=== PATIENT | male | born 1950 | race Caucasian/White ===

== ENCOUNTER 2016-10-26 12:27 | Outpatient (CLI) | payer OTHER | END 2016-10-26 12:28 | disposition critical access hospital (66) | LOC: EMS 12:27 | PROVIDERS: ATTEND Surgery | DX: R07.9 Chest pain, unspecified (principal); R53.83 Other fatigue | CPT/HCPCS: A0425; A0427 ==

== ENCOUNTER 2016-10-26 12:56 | Emergency (ER) | payer OTHER ==
[2016-10-26 13:21] LABS: BASOPHILS % (AUTO) 0.6 %; EOSINOPHILS # (AUTO) 0.1 10^3/uL (0.0-0.7); HCT - HEMATOCRIT 39.6 % (42.0-52.0); HGB - HEMOGLOBIN 13.5 g/dL (14.0-18.0); LYMPHOCYTES # (AUTO) 0.8 10^3/uL (1.5-3.5); LYMPHOCYTES % (AUTO) 12.8 %; MEAN CORPUSCULAR HEMOGLOBIN 31.6 pg (27.0-31.0); MEAN CORPUSCULAR HGB CONC 34.1 g/dL (32.0-36.0); MEAN CORPUSCULAR VOLUME 92.8 fL (80.0-94.0); MEAN PLATELET VOLUME 7.3 fL (7.4-11.4); MONOCYTES # (AUTO) 0.4 10^3/uL (0.0-1.0); MONOCYTES % (AUTO) 6.4 %; NEUTROPHILS # (AUTO) 4.7 10^3/uL (1.5-6.6); NEUTROPHILS % (AUTO) 79.2 %; RED BLOOD COUNT 4.26 10^6/uL (4.70-6.10); RED CELL DISTRIBUTION WIDTH 13.3 % (12.0-15.0); UNCORRECTED WHITE BLOOD COUNT 5.9 x10^3/uL; WHITE BLOOD COUNT 5.9 x10^3/uL (4.8-10.8)
[2016-10-26 13:28] LABS: BILIRUBIN,URINE NEGATIVE (NEGATIVE); PH,URINE 5.5 PH (5.0-7.5)
[2016-10-26 13:28] LABS: INR 1.1 (0.8-1.2); PT - PROTHROMBIN TIME 12.5 secs (9.9-12.6)
[2016-10-26 13:29] LABS: UA CHARGE (STRIP ONLY) YES; UR CULTURE IF IND NOT INDICATED
--- NOTE | 2016-10-26 13:31 | XRAY Preliminary Report ---
Exam: XR Chest 1 View IMPRESSION: Postoperative changes. No evidence of acute cardiopulmonary disease. [facility] SITE ID: [id number]
[2016-10-26] MEDS ORDERED: NITROGLYCERIN 2% PASTE TOP ONE (13:34)
[2016-10-26] MEDS ORDERED: ASPIRIN CHEW 81 MG TABLET ONE (13:34)
[2016-10-26] MEDS ORDERED: ENOXAPARIN 80 MG/0.8 ML SYRINGE SUBQ ONE (13:34)
--- NOTE | 2016-10-26 13:34 | XRAY Report ---
EXAM: CHEST RADIOGRAPHY EXAM DATE: 10/26/2016 01:24 PM. CLINICAL HISTORY: Chest pain. COMPARISON: None. TECHNIQUE: 1 view. FINDINGS: Lungs/Pleura: No focal opacities evident. No pleural effusion. No pneumothorax. Mediastinum: Postoperative changes of previous cardiac surgery. No cardiomegaly. Other: None. IMPRESSION: Postoperative changes. No evidence of acute cardiopulmonary disease. [facility] Referring Provider Line: [phone] SITE ID: [id number]
[2016-10-26 13:35] LABS: PARTIAL THROMBOPLASTIN TIME 26.6 secs (24.9-33.3)
[2016-10-26 13:37] LABS: ALBUMIN/GLOBULIN RATIO 1.2 (1.0-2.2); BILIRUBIN,TOTAL 0.9 mg/dL (0.2-1.0); BUN - BLOOD UREA NITROGEN 30 mg/dL (6-20); CARBON DIOXIDE - CO2 30 mmol/L (21-32); CHLORIDE 103 mmol/L (101-111); CREATININE 1.1 mg/dL (0.6-1.2); GFR - MDRD 67 (>89); GLUCOSE 174 mg/dL (70-100); LIPASE 35 U/L (22-51); POTASSIUM 3.6 mmol/L (3.5-5.0); SODIUM 138 mmol/L (135-145); TOTAL PROTEIN 6.8 g/dL (6.7-8.2)
[2016-10-26] MEDS: NITROGLYCERIN 2% PASTE TOP STA (13:42)
[2016-10-26] MEDS: ASPIRIN CHEW 81 MG TABLET PO STA (13:43)
[2016-10-26] MEDS: ENOXAPARIN 80 MG/0.8 ML SYRINGE SUBQ STA (13:43)
[2016-10-26] MEDS: SODIUM CHLORIDE 0.9% 1,000 ML IV ONE (14:14)
--- NOTE | 2016-10-26 15:50 | ED Physician Documentation ---
History of Present Illness - Stated complaint Stated Complaint: CP - Chief complaint Chief Complaint: Cardiac - History obtained from History obtained from: Patient - Additonal information Additional information: Patient is a 66-year-old male with a history of coronary disease status post two -vessel bypass in 2011. He also has a history of dyslipidemia. He is here with a complaint of exertional chest pain. The symptoms first started about 3 weeks ago and it occurred each time he walks on his treadmill. More recently when the patient went on a walk yesterday he had to stop several times even during a short walk because of a dull ache in the anterior precordium. He has not had this pain at rest yet. Today when he is walking out to his car he felt a dull ache in the anterior precordium as well.He denies any other associated symptoms and her is no radiation of this pain anywhere. He has not had any other symptoms consistent with infection such as fever or chills or cough. He has not had any nausea vomiting, constipation diarrhea or lower urinary symptoms. He is on aspirin and on a statin. He is not on any other anticoagulation. He says he saw physician in [place] within the month and had a cardiac echo done. He thinks the results of the study were normal he does not believe he has had any provocative stress testing since the heart catheterization and bypass. This patient does not smoke or drink he is otherwise healthy And his other significant medical problem is Parkinson's which is currently being treated. Review of systems: For pertinent positive and negative questions for the review of systems please see history of present illness. Otherwise all other systems have been reviewed and are negative. Dragon disclaimer: Parts of this medical record were created using voice recognition technology. Because of the inherent limitations of this system occasional same sounding word substitutions do occur and persist despite proofreading. Please read the document for context. PD PAST MEDICAL HISTORY - Past Medical History Past Medical History: No Cardiovascular: High cholesterol, [place] Neuro: Parkinson's Endocrine/Autoimmune: None GI: None - Past Surgical History Cardiovascular: CABG - Present Medications Home Medications: Ambulatory Orders Medication Instructions Recorded Confirmed Aspirin 81 mg 12/17/14 12/17/14 Atorvastatin Calcium 80 mg PO DAILY 12/17/14 10/26/16 Carbidopa/Levodopa [Carbidopa-Levo 1 each PO DAILY 12/17/14 10/26/16 10-100 mg Odt] Terazosin [Hytrin] 5 mg PO DAILY 12/17/14 10/26/16 Losartan [Cozaar] 12.5 mg PO DAILY 10/26/16 10/26/16 Rasagiline [Azilect] 1 tab PO DAILY 10/26/16 10/26/16 - Allergies Allergies/Adverse Reactions: Allergies Allergy/AdvReac Type Severity Reaction Status Date / Time lisinopril Allergy Unknown Verified 12/17/14 14:19 - Social History Does the pt smoke?: No Smoking Status: Never smoker Does the pt drink ETOH?: No Does the pt have substance abuse?: No PD ED PE NORMAL - General General: Alert and oriented X 3, No acute distress, Well developed/nourished - HEENT HEENT: Atraumatic, PERRL, EOMI, Ears normal, Pharynx benign, Dentition benign - Neck Neck: Supple, no meningeal sign, No bony TTP, No JVD, No bruit - Cardiac Cardiac: RRR, No murmur, No gallop, No rub - Respiratory Respiratory: No respiratory distress, Clear bilaterally - Abdomen Abdomen: Normal bowel sounds, Soft, Non tender, Non distended - Derm Derm: Normal color, Warm and dry, No rash - Extremities Extremities: No deformity, No tenderness to palpate, Normal ROM s pain, No edema - Neuro Neuro: Alert and oriented X 3, special library librarian 2-12 intact, No motor deficit, No sensory deficit - Psych Psych: Normal mood, Normal affect Results - Vitals Vitals: Vital Signs - 24 hr 10/26/16 10/26/16 10/26/16 13:02 13:51 14:24 Temperature 36.6 C Heart Rate 75 85 68 Respiratory 16 16 16 Rate Blood Pressure 127/60 128/56 L O2 Saturation 97 99 98 10/26/16 15:06 Temperature Heart Rate 71 Respiratory 16 Rate Blood Pressure 136/66 H O2 Saturation 98 Oxygen O2 Source Room air - Labs Labs: Laboratory Tests 10/26/16 10/26/16 10/26/16 13:00 13:14 13:14 WBC 5.9 RBC 4.26 L Hgb 13.5 L Hct 39.6 L MCV 92.8 MCH 31.6 H MCHC 34.1 RDW 13.3 Plt Count 169 MPV 7.3 L Neut # 4.7 Lymph # 0.8 L [place] # 0.4 Eos # 0.1 Baso # 0.0 Absolute Nucleated RBC 0.00 Nucleated RBCs 0.0 PT 12.5 INR 1.1 APTT 26.6 Sodium Potassium Chloride Carbon Dioxide Anion Gap BUN Creatinine Estimated GFR (MDRD) Glucose Calcium Total Bilirubin AST ALT Alkaline Phosphatase Troponin I B-Natriuretic Peptide Total Protein Albumin Globulin Albumin/Globulin Ratio Lipase Urine Color YELLOW Urine Clarity CLEAR Urine pH 5.5 Ur Specific [place] 1.025 Urine Protein NEGATIVE Urine Glucose (UA) NEGATIVE Urine Ketones TRACE Urine Occult Blood NEGATIVE Urine Nitrite NEGATIVE Urine Bilirubin NEGATIVE Urine Urobilinogen 0.2 (NORMAL) Ur Leukocyte Esterase NEGATIVE Ur Microscopic Review NOT INDICATED Urine Culture Comments NOT INDICATED 10/26/16 10/26/16 10/26/16 13:14 13:14 13:14 WBC RBC Hgb Hct MCV MCH MCHC RDW Plt Count MPV Neut # Lymph # [place] # Eos # Baso # Absolute Nucleated RBC Nucleated RBCs PT INR APTT Sodium 138 Potassium 3.6 Chloride 103 Carbon Dioxide 30 Anion Gap 5.0 L BUN 30 H Creatinine 1.1 Estimated GFR (MDRD) 67 L Glucose 174 H Calcium 9.0 Total Bilirubin 0.9 AST 30 ALT < 10 L Alkaline Phosphatase 70 Troponin I < 0.04 B-Natriuretic Peptide 37 Total Protein 6.8 Albumin 3.7 Globulin 3.1 Albumin/Globulin Ratio 1.2 Lipase 35 Urine Color Urine Clarity Urine pH Ur Specific [place] Urine Protein Urine Glucose (UA) Urine Ketones Urine Occult Blood Urine Nitrite Urine Bilirubin Urine Urobilinogen Ur Leukocyte Esterase Ur Microscopic Review Urine Culture Comments PD MEDICAL DECISION MAKING - ED course ED course: Patient is a pleasant 66-year-old male with a history of coronary disease status post bypass who presents with exertional chest pain for the past 3 weeks that is getting worse. Today was a worse episode so far it was exacerbated by minimal exertion that occurred when the patient walked from his home to the car with boxes. The chest pain is substernal without radiation any other associated symptoms. The patient does not have any other symptomology that may explain his exertional dyspneaOther than a cardiac cause. He has not been sick or ill he has not had any fever or chills or coughing and on examination here in general he looks to be in good condition for his age. He was given an aspirin and EKG was done his EKG demonstrates normal sinus rhythm. The HI, QRS and QT intervals are all within normal limits there is no evidence of ST elevation or depression but there is very subtle T-wave inversion in V4 V5 and V6.A chest x-ray was done and shows no evidence of any acute intrathoracic disease. Blood work on this patient is unremarkable and does not show any findings that might be causal to his exertional chest pain. His hemoglobin and hematocrit are normal. His BUN is slightly elevated at 30 however his renal function is normal. He is first troponin is negative. He was given 1 L of normal saline here, nitroglycerin topically, and injection of Lovenox. Given this patient's worsening exertional chest pain and history of coronary disease he probably needs provocative stress testing and perhaps angiography. The patient is currently stable and has no chest pain at rest. The [facility] had no beds were unable to get the patient to that facility. Evelia Mcallister responded to her call and are agreeable to take this patient As a transfer for further evaluation and probable admission. The patient remains clinically stable at this time. Disposition: Transfer to [facility] Clinical impression: 1. Probable unstable angina with exertional chest pain that is worsening 2. History of coronary disease status post two-vessel bypass in 2011 3. History of Parkinson's disease-stable Departure - Departure Disposition: 02 Transfer Acute Care Hosp Clinical Impression: Unstable angina Condition: Good
[2016-10-26 16:47] VITALS: BP 131/62
== END 2016-10-26 16:52 | disposition short-term general hospital (02) ==
LOC: EDUNIT# → ED 12:56
DX: I25.110 Atherosclerotic heart disease of native coronary artery with unstable angina pectoris (principal); Z95.1 Presence of aortocoronary bypass graft; E78.5 Hyperlipidemia, unspecified; E78.00 Pure hypercholesterolemia, unspecified; I25.2 Old myocardial infarction; G20 Parkinson's disease; Z79.82 Long term (current) use of aspirin
CPT/HCPCS: 36415; 71010; 80053; 81001; 81003; 83690; 83880; 84484; 85025; 85610; 85730; 87086; 93005; 96372; 99285

== ENCOUNTER 2016-10-26 16:50 | Outpatient (CLI) | payer OTHER | END 2016-10-26 16:51 | disposition short-term general hospital (02) | LOC: EMS 16:50 | PROVIDERS: ATTEND Surgery | DX: R07.9 Chest pain, unspecified (principal) | CPT/HCPCS: A0170; A0425; A0426 ==

== ENCOUNTER 2017-05-13 19:09 | Outpatient (CLI) | payer OTHER | END 2017-05-13 19:10 | disposition home or self-care (01) | LOC: LAB 19:09 | PROVIDERS: ATTEND Pathology Blood Banking & Transfusion Medicine | DX: Z01.89 Encounter for other specified special examinations (principal) | CPT/HCPCS: 36415 ==

== ENCOUNTER 2018-09-11 08:00 | Outpatient (CLI) | payer OTHER ==
[2018-09-11 19:12] LABS: ALT ALANINE AMINOTRANSFERASE < 10 IU/L (10-60); AST ASPARTATE AMINOTRANSFERASE 26 IU/L (10-42); CHOL/HDL RATIO 2.6 (<5.0); CHOLESTEROL 111 mg/dL; CK- CREATINE KINASE 281 IU/L (22-269); HDL CHOLESTEROL 42 mg/dL; LDL CHOLESTEROL,CALCULATED 58 mg/dL; LDL CHOLESTEROL,DIRECT 60 mg/dL; LDL/HDL RATIO 1.4 (<3.6); VLDL CHOLESTEROL 11 mg/dL
== END 2018-09-11 23:59 | disposition home or self-care (01) ==
LOC: LAB.N 08:00
PROVIDERS: ATTEND Internal Medicine Cardiovascular Disease
DX: E78.5 Hyperlipidemia, unspecified (principal)
CPT/HCPCS: 36415; 80061; 82550; 83721; 84450; 84460

== ENCOUNTER 2018-11-06 12:12 | Emergency (ER) | payer OTHER ==
[2018-11-06] MEDS ORDERED: MAG HYDROX/AL HYDROX/SIMETH 30 ML UDC PO STA (12:31)
[2018-11-06] MEDS ORDERED: LIDOCAINE VISCOUS 2% 15 ML UDC MM STA (12:31)
--- NOTE | 2018-11-06 12:34 | ED Physician Documentation ---
PD HPI CHEST PAIN - Stated complaint Stated Complaint: CHEST PAIN - Chief complaint Chief Complaint: Cardiac - History obtained from History obtained from: Patient - History of Present Illness Timing - onset: How many hours ago (1.5) Timing - onset during: Other (After taking morning medication.) Timing - details: Now resolved Location: Substernal Improved by: ASA Similar symptoms before: No diagnosis - Additional information Additional information: The patient is 68-year-old male who presents with episode of chest pressure that occurred after taking his morning medications and eating a triple chocolate fudge brownie. He felt associated weakness, but denies shortness of breath, nausea or vomiting. The medications were Sinemet, baby aspirin, and ibuprofen. 911 was called, and the medics administered 3 more baby aspirin. His symptoms have completely resolved since that time. He reports history of similar but less severe episodes in the past after taking medications. Past history is significant for Parkinson's and for coronary artery disease for which he is status post CABG. 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 Review of Systems Constitutional: denies: Fever, Fatigue Ears: denies: Tinnitus/ringing Nose: denies: Congestion Throat: denies: Sore throat Cardiac: reports: Chest pain / pressure (resolved) Respiratory: denies: Dyspnea, Cough GI: denies: Abdominal Pain, Nausea, Vomiting : denies: Dysuria Skin: denies: Rash Musculoskeletal: denies: Extremity pain Neurologic: denies: Focal weakness, Numbness, Headache PD PAST MEDICAL HISTORY - Past Medical History Cardiovascular: High cholesterol, Coronary artery disease, [place] Respiratory: None Neuro: Parkinson's Endocrine/Autoimmune: None GI: None : Benign prostate hypertrophy HEENT: None Psych: None Musculoskeletal: None Derm: None - Past Surgical History Ortho: Other Cardiovascular: CABG, Coronary stent - Present Medications Home Medications: Ambulatory Orders Medication Instructions Recorded Confirmed Aspirin 81 mg 12/17/14 12/17/14 Atorvastatin Calcium 80 mg PO DAILY 12/17/14 10/26/16 Carbidopa/Levodopa [Carbidopa-Levo 1 each PO DAILY 12/17/14 10/26/16 10-100 mg Odt] Terazosin [Hytrin] 5 mg PO DAILY 12/17/14 10/26/16 Losartan [Cozaar] 12.5 mg PO DAILY 10/26/16 10/26/16 Rasagiline [Azilect] 1 tab PO DAILY 10/26/16 10/26/16 - Allergies Allergies/Adverse Reactions: Allergies Allergy/AdvReac Type Severity Reaction Status Date / Time lisinopril Allergy Unknown Verified 12/17/14 14:19 - Social History Does the pt smoke?: No Smoking Status: Never smoker Does the pt drink ETOH?: No ETOH Use: Liquor Does the pt have substance abuse?: No - Immunizations Immunizations are current?: No Immunizations: Other immun not current - POLST Patient has POLST: No PD ED PE NORMAL - Vitals Vital signs reviewed: Yes (hypotensive) - General General: Alert and oriented X 3, Well developed/nourished, Other (Masked facies consistent with parkinsonism.) - HEENT HEENT: Atraumatic, Pharynx benign - Neck Neck: No adenopathy, No JVD - Cardiac Cardiac: RRR - Respiratory Respiratory: No respiratory distress, Clear bilaterally - Abdomen Abdomen: Soft, Non tender - Back Back: No CVA TTP - Derm Derm: No rash - Extremities Extremities: No edema, No calf tenderness / cord - Neuro Neuro: Alert and oriented X 3, No motor deficit, Normal speech Results - Vitals Vitals: Vital Signs - 24 hr 11/06/18 11/06/18 11/06/18 12:10 12:16 12:53 Temperature 36.4 C L Heart Rate 77 64 Respiratory 18 13 Rate Blood Pressure 85/62 L 82/51 L Blood Pressure 87/56 L [Left] Blood Pressure 85/62 L [Right] O2 Saturation 95 95 11/06/18 14:52 Temperature Heart Rate 61 Respiratory 18 Rate Blood Pressure 118/63 Blood Pressure [Left] Blood Pressure [Right] O2 Saturation 95 Oxygen O2 Source Room air - EKG (time done) 12:10 Rate: Rate (enter#) (77) Rhythm: NSR, LAE Ischemia: Non specific changes (Diffuse t-wave flattening.) Compare to prior EKG: Unchanged from prior EKG Computer interpretation: Agree with computer - Labs Labs: Laboratory Tests 11/06/18 11/06/18 11/06/18 12:35 12:35 12:35 WBC 4.6 L RBC 3.94 L Hgb 12.6 L Hct 38.2 L MCV 97.0 H MCH 32.0 H MCHC 33.0 RDW 12.9 Plt Count 171 MPV 9.2 Neut # (Auto) 3.4 Lymph # (Auto) 0.6 L [place] # (Auto) 0.4 Eos # (Auto) 0.1 Baso # (Auto) 0.0 Absolute Nucleated RBC 0.00 Nucleated RBC % 0.0 Sodium 140 Potassium 3.9 Chloride 105 Carbon Dioxide 26 Anion Gap 9.0 BUN 25 H Creatinine 1.1 Estimated GFR (MDRD) 67 L Glucose 152 H Calcium 8.6 Total Bilirubin 0.8 AST 23 ALT < 10 L Alkaline Phosphatase 61 Troponin I < 0.04 Troponin I High Sens 6.9 Total Protein 6.3 L Albumin 3.3 Globulin 3.0 Albumin/Globulin Ratio 1.1 Lipase 36 - Rads (name of study) CXR Radiology: Prelim report reviewed, EMP read contemporaneously, See rad report (Negative for acute cardiopulmonary abnormality.) PD MEDICAL DECISION MAKING - ED course Complexity details: reviewed old records, reviewed results, re-evaluated patient, considered differential, d/w patient ED course: The patient's presentation is most consistent with gastroesophageal reflux, exacerbated by eating a triple fudge brownie for breakfast. I doubt cardiac ischemia or pulmonary embolus. His electrocardiogram reveals no evidence of acute ischemic abnormality, and troponin is normal. Chest x-ray reveals no acute cardiopulmonary abnormality. Treatment in the emergency department included administration of Normal saline IV and GI cocktail. He felt subjectively improved after the above treatment. I discussed with him the results of his work-up, symptomatic treatment and outpatient follow-up, as well as potentially worrisome signs or symptoms that should prompt reevaluation in the emergency department. Departure - Departure Disposition: 01 Home, Self Care Clinical Impression: Gastroesophageal reflux disease Qualifiers: Esophagitis presence: esophagitis presence not specified Qualified Code(s): K21.9 - Gastro-esophageal reflux disease without esophagitis Condition: Stable Instructions: ED GERD Follow-Up: Camron Mccarthy MD [Primary Care Provider] - Comments: Minimize coffee, mary, and avoid triple fluids brownies before breakfast. If you develop recurrent symptoms try drinking liquid antacid, such as Maalox or Mylanta. Return to the emergency department if you develop increasing pain, shortness of breath, or otherwise worsening symptoms. Discharge Date/Time: 11/06/18 15:05
[2018-11-06] MEDS ORDERED: SODIUM CHLORIDE 0.9% 1,000 ML IV ONE (12:35)
[2018-11-06 12:46] LABS: BASOPHILS % (AUTO) 0.7 %; EOSINOPHILS # (AUTO) 0.1 10^3/uL (0.0-0.7); HGB - HEMOGLOBIN 12.6 g/dL (14.0-18.0); LYMPHOCYTES # (AUTO) 0.6 10^3/uL (1.5-3.5); LYMPHOCYTES % (AUTO) 13.1 %; MEAN PLATELET VOLUME 9.2 fL (7.4-11.4); MONOCYTES # (AUTO) 0.4 10^3/uL (0.0-1.0); MONOCYTES % (AUTO) 9.2 %; NEUTROPHILS # (AUTO) 3.4 10^3/uL (1.5-6.6); NEUTROPHILS % (AUTO) 74.8 %; PLT - PLATELET COUNT 171 10^3/uL (130-450); RED BLOOD COUNT 3.94 10^6/uL (4.70-6.10); RED CELL DISTRIBUTION WIDTH 12.9 % (12.0-15.0); WHITE BLOOD COUNT 4.6 x10^3/uL (4.8-10.8)
[2018-11-06 12:59] LABS: ALBUMIN 3.3 g/dL (3.2-5.5); ALBUMIN/GLOBULIN RATIO 1.1 (1.0-2.2); ALKALINE PHOSPHATASE 61 IU/L (42-121); ALT ALANINE AMINOTRANSFERASE < 10 IU/L (10-60); AST ASPARTATE AMINOTRANSFERASE 23 IU/L (10-42); BILIRUBIN,TOTAL 0.8 mg/dL (0.2-1.0); BUN - BLOOD UREA NITROGEN 25 mg/dL (6-20); CALCIUM 8.6 mg/dL (8.5-10.3); CARBON DIOXIDE - CO2 26 mmol/L (21-32); CHLORIDE 105 mmol/L (101-111); CREATININE 1.1 mg/dL (0.6-1.2); GFR - MDRD 67 (>89); GLUCOSE 152 mg/dL (70-100); LIPASE 36 U/L (22-51); SODIUM 140 mmol/L (135-145); TOTAL PROTEIN 6.3 g/dL (6.7-8.2)
[2018-11-06 13:03] LABS: TROPONIN I < 0.04 ng/mL (<0.49)
--- NOTE | 2018-11-06 13:19 | XRAY Report ---
Reason: chest pain Procedure Date: 11/06/2018 Accession Number: [id number] / [id number] Procedure: XR - Chest 1 View X-Ray CPT Code: 22105 FULL RESULT: EXAM: CHEST RADIOGRAPHY EXAM DATE: 11/06/2018 01:09 PM. CLINICAL HISTORY: Chest pain. COMPARISON: None. TECHNIQUE: 1 view. FINDINGS: Lungs/Pleura: There is a 7 mm round dense calcified nodule in the right lower lobe. Otherwise, lungs were clear. No pulmonary edema or pneumothorax. Mediastinum: Previous median sternotomy. Heart size is normal. Trachea is midline. Other: None. IMPRESSION: Negative for an acute cardiopulmonary abnormality. [facility]
[2018-11-06 14:53] VITALS: BP 118/63
== END 2018-11-06 15:05 | disposition home or self-care (01) ==
LOC: EDUNIT# → ED 12:12
DX: K21.9 Gastro-esophageal reflux disease without esophagitis (principal); G20 Parkinson's disease
CPT/HCPCS: 36415; 71045; 80053; 83690; 84484; 85025; 93005; 96360; 96361; 99283; 99284; A9270

== ENCOUNTER 2019-05-01 10:14 | Emergency (ER) | payer OTHER ==
--- NOTE | 2019-05-01 10:26 | ED Physician Documentation ---
PD HPI CHEST PAIN - Stated complaint Stated Complaint: CP - Chief complaint Chief Complaint: Cardiac - History obtained from History obtained from: Patient - History of Present Illness Timing - onset: Enter time (829), Today Timing - onset during: Light activity Timing - duration: Minutes (15) Timing - details: Gradual onset, Now resolved Pain level max: 3 Pain level now: 0 Quality: Pressure Location: Left chest Radiation: Back Improved by: Rest Worsened by: Other (nothing) Associated symptoms: Feeling faint / dizzy, General Weakness. No: Shortness of air, Diaphoresis, Nausea, Vomiting, Palpitations Similar symptoms before: Diagnosis (reflux) Recently seen: Not recently seen - Additional information Additional information: 68-year-old male with a history of Parkinson's disease and status post CABG who had angina prior to his CABG has developed some left substernal chest pressure after awakening this morning. He states that he has been feeling lightheaded and dizzy when he stands and he has not had this chest pressure associated with this previously. He does have some prior history similar to this about 6 months ago when he had some triple chocolate cake for breakfast in the morning. He does not feel he is having an issue with reflux. He does have some slowing of his cortical functions associated with his Parkinson's disease and he has been having some issues with his balance. He is urinating a lot. Review of Systems Constitutional: reports: Fatigue. denies: Fever Eyes: denies: Decreased vision Ears: denies: Ear pain Nose: denies: Rhinorrhea / runny nose, Congestion Throat: denies: Sore throat Cardiac: reports: Chest pain / pressure. denies: Palpitations, Pedal edema, Calf pain Respiratory: denies: Dyspnea, Cough GI: denies: Abdominal Pain, Nausea, Vomiting : reports: Frequency. denies: Dysuria Skin: denies: Rash Musculoskeletal: denies: Neck pain, Back pain, Extremity pain Neurologic: reports: Other (dizziness on standing.). denies: Generalized weakness, Focal weakness, Numbness PD PAST MEDICAL HISTORY - Past Medical History Cardiovascular: High cholesterol, Coronary artery disease, [place] Respiratory: None Neuro: Parkinson's Endocrine/Autoimmune: None GI: None : Benign prostate hypertrophy HEENT: None Psych: None Musculoskeletal: None Derm: None - Past Surgical History Ortho: Other Cardiovascular: CABG, Coronary stent - Present Medications Home Medications: Ambulatory Orders Medication Instructions Recorded Confirmed Aspirin 81 mg 12/17/14 12/17/14 Atorvastatin Calcium 80 mg PO DAILY 12/17/14 10/26/16 Carbidopa/Levodopa [Carbidopa-Levo 1 each PO DAILY 12/17/14 10/26/16 10-100 mg Odt] Terazosin [Hytrin] 5 mg PO DAILY 12/17/14 10/26/16 Losartan [Cozaar] 12.5 mg PO DAILY 10/26/16 10/26/16 Rasagiline [Azilect] 1 tab PO DAILY 10/26/16 10/26/16 - Allergies Allergies/Adverse Reactions: Allergies Allergy/AdvReac Type Severity Reaction Status Date / Time lisinopril Allergy Unknown Verified 12/17/14 14:19 - Social History Does the pt smoke?: No Smoking Status: Never smoker Does the pt drink ETOH?: No Does the pt have substance abuse?: No - Immunizations Immunizations are current?: No Immunizations: Other immun not current - POLST Patient has POLST: No PD ED PE NORMAL - Vitals Vital signs reviewed: Yes (hypertensive mild ) - General General: Alert and oriented X 3, No acute distress, Well developed/nourished, Other (gravelly voice with some delay in execution of motor commands. ) - HEENT HEENT: Atraumatic, PERRL, EOMI, Pharynx benign, Other (dense cerumen impaction bilat) - Neck Neck: Supple, no meningeal sign, No bony TTP - Cardiac Cardiac: RRR, No murmur - Respiratory Respiratory: No respiratory distress, Clear bilaterally - Abdomen Abdomen: Normal bowel sounds, Soft, Non tender, Non distended, No organomegaly - Back Back: No CVA TTP, No spinal TTP - Derm Derm: Warm and dry, No rash - Extremities Extremities: No deformity, No tenderness to palpate, Normal ROM s pain, No edema, No calf tenderness / cord - Neuro Neuro: Alert and oriented X 3, compliance testing analyst 2-12 intact, No motor deficit, No sensory deficit, Normal speech Eye Opening: Spontaneous Motor: Obeys Commands Verbal: Oriented GCS Score: 15 - Psych Psych: Normal mood, Normal affect Results - Vitals Vitals: Vital Signs - 24 hr 05/01/19 05/01/19 05/01/19 10:17 10:20 11:48 Temperature 37.1 C Heart Rate 69 67 63 Respiratory 16 14 12 Rate Blood Pressure 144/73 H 144/73 H 169/85 H O2 Saturation 100 94 97 05/01/19 05/01/19 05/01/19 12:00 12:30 13:00 Temperature Heart Rate 64 103 H 90 Respiratory 18 18 18 Rate Blood Pressure 163/76 H 180/72 H 170/68 H O2 Saturation 99 99 97 05/01/19 05/01/19 13:30 14:20 Temperature 36.4 C L Heart Rate 90 78 Respiratory 16 16 Rate Blood Pressure 149/83 H 147/77 H O2 Saturation 97 97 Oxygen O2 Source Room air - EKG (time done) 1015 Rate: Rate (enter#) (75) Ischemia: Non specific changes (T wave flattening laterally ) Compare to prior EKG: Unchanged from prior EKG (ST [id number] no sig change. ) - Labs Labs: Laboratory Tests 05/01/19 05/01/19 05/01/19 11:15 11:28 11:28 WBC 6.2 RBC 3.93 L Hgb 12.4 L Hct 37.7 L MCV 95.9 H MCH 31.6 H MCHC 32.9 RDW 12.5 Plt Count 178 MPV 9.5 Neut # (Auto) 4.9 Lymph # (Auto) 0.6 L [place] # (Auto) 0.6 Eos # (Auto) 0.0 Baso # (Auto) 0.1 Absolute Nucleated RBC 0.00 Nucleated RBC % 0.0 Sodium 141 Potassium 4.3 Chloride 104 Carbon Dioxide 27 Anion Gap 10.0 BUN 34 H Creatinine 1.4 H Estimated GFR (MDRD) 51 L Glucose 121 H Calcium 9.0 Total Bilirubin 1.0 AST 25 ALT < 10 L Alkaline Phosphatase 69 Troponin I High Sens Total Protein 6.8 Albumin 3.8 Globulin 3.0 Albumin/Globulin Ratio 1.3 Lipase 40 Urine Color YELLOW Urine Clarity CLEAR Urine pH 6.0 Ur Specific [place] 1.015 Urine Protein NEGATIVE Urine Glucose (UA) NEGATIVE Urine Ketones NEGATIVE Urine Occult Blood NEGATIVE Urine Nitrite NEGATIVE Urine Bilirubin NEGATIVE Urine Urobilinogen 0.2 (NORMAL) Ur Leukocyte Esterase NEGATIVE Ur Microscopic Review NOT INDICATED Urine Culture Comments NOT INDICATED 05/01/19 11:28 WBC RBC Hgb Hct MCV MCH MCHC RDW Plt Count MPV Neut # (Auto) Lymph # (Auto) [place] # (Auto) Eos # (Auto) Baso # (Auto) Absolute Nucleated RBC Nucleated RBC % Sodium Potassium Chloride Carbon Dioxide Anion Gap BUN Creatinine Estimated GFR (MDRD) Glucose Calcium Total Bilirubin AST ALT Alkaline Phosphatase Troponin I High Sens 6.4 Total Protein Albumin Globulin Albumin/Globulin Ratio Lipase Urine Color Urine Clarity Urine pH Ur Specific [place] Urine Protein Urine Glucose (UA) Urine Ketones Urine Occult Blood Urine Nitrite Urine Bilirubin Urine Urobilinogen Ur Leukocyte Esterase Ur Microscopic Review Urine Culture Comments Procedures - IVC sono (time) 1117 Bedside IVC sono: IVC measures (cm) (0.71), Significant dehydration (est 2+ liter deficit) PD MEDICAL DECISION MAKING - ED course Complexity details: reviewed old records, reviewed results, re-evaluated patient, considered differential, d/w patient ED course: 68 y/o male with Parkinson's is dizzy and light headed and is found to be dehydrated on interrogation of the IVC. He is administered IV saline Departure - Departure Disposition: 01 Home, Self Care Clinical Impression: Dehydration Condition: Stable Instructions: ED Dehydration Follow-Up: Sheela Doss MD [Primary Care Provider] - Discharge Date/Time: 05/01/19 14:24
[2019-05-01] MEDS ORDERED: SODIUM CHLORIDE 0.9% 1,000 ML IV ONE ×2 (11:14→13:21)
[2019-05-01 11:41] LABS: BASOPHILS # (AUTO) 0.1 10^3/uL (0.0-0.1); EOSINOPHILS % (AUTO) 0.6 %; HGB - HEMOGLOBIN 12.4 g/dL (14.0-18.0); LYMPHOCYTES # (AUTO) 0.6 10^3/uL (1.5-3.5); MEAN CORPUSCULAR HEMOGLOBIN 31.6 pg (27.0-31.0); MEAN CORPUSCULAR HGB CONC 32.9 g/dL (32.0-36.0); MEAN CORPUSCULAR VOLUME 95.9 fL (80.0-94.0); MEAN PLATELET VOLUME 9.5 fL (7.4-11.4); MONOCYTES # (AUTO) 0.6 10^3/uL (0.0-1.0); MONOCYTES % (AUTO) 9.4 %; NEUTROPHILS # (AUTO) 4.9 10^3/uL (1.5-6.6); NEUTROPHILS % (AUTO) 78.7 %; PLT - PLATELET COUNT 178 10^3/uL (130-450); RED BLOOD COUNT 3.93 10^6/uL (4.70-6.10); RED CELL DISTRIBUTION WIDTH 12.5 % (12.0-15.0); WHITE BLOOD COUNT 6.2 x10^3/uL (4.8-10.8)
[2019-05-01 11:55] LABS: ALBUMIN 3.8 g/dL (3.2-5.5); ALBUMIN/GLOBULIN RATIO 1.3 (1.0-2.2); ALKALINE PHOSPHATASE 69 IU/L (42-121); ALT ALANINE AMINOTRANSFERASE < 10 IU/L (10-60); AST ASPARTATE AMINOTRANSFERASE 25 IU/L (10-42); BUN - BLOOD UREA NITROGEN 34 mg/dL (6-20); CARBON DIOXIDE - CO2 27 mmol/L (21-32); CHLORIDE 104 mmol/L (101-111); CREATININE 1.4 mg/dL (0.6-1.2); GFR - MDRD 51 (>89); GLUCOSE 121 mg/dL (70-100); LIPASE 40 U/L (22-51); SODIUM 141 mmol/L (135-145); TOTAL PROTEIN 6.8 g/dL (6.7-8.2)
[2019-05-01 12:06] LABS: BILIRUBIN,URINE NEGATIVE (NEGATIVE); GLUCOSE, URINE (UA) NEGATIVE (NEGATIVE); KETONES,URINE (UA) NEGATIVE (NEGATIVE); LEUKOCYTE ESTERASE, URINE NEGATIVE (NEGATIVE); NITRITE,URINE NEGATIVE (NEGATIVE); OCCULT BLOOD,URINE NEGATIVE (NEGATIVE); PROTEIN,URINE NEGATIVE (NEGATIVE); UROBILINOGEN,URINE 0.2 (NORMAL) E.U./dL (NORMAL)
[2019-05-01 12:11] LABS: CLARITY,URINE CLEAR (CLEAR)
[2019-05-01 14:22] VITALS: BP 147/77
== END 2019-05-01 14:24 | disposition home or self-care (01) ==
LOC: EDUNIT# → ED 10:14
DX: E86.0 Dehydration (principal); R07.89 Other chest pain; G20 Parkinson's disease; R35.0 Frequency of micturition; H61.23 Impacted cerumen, bilateral; I25.10 Atherosclerotic heart disease of native coronary artery without angina pectoris; Z95.5 Presence of coronary angioplasty implant and graft; Z95.1 Presence of aortocoronary bypass graft; I25.2 Old myocardial infarction; Z79.82 Long term (current) use of aspirin
CPT/HCPCS: 36415; 80053; 81001; 81003; 83690; 84484; 85025; 87086; 93005; 96360; 96361; 99284

== ENCOUNTER 2019-05-01 11:15 | Outpatient (CLI) | payer OTHER | END 2019-05-01 11:16 | disposition critical access hospital (66) | LOC: EMS 11:15 | PROVIDERS: ATTEND Surgery | DX: R07.9 Chest pain, unspecified (principal); R03.0 Elevated blood-pressure reading, without diagnosis of hypertension; Z95.5 Presence of coronary angioplasty implant and graft | CPT/HCPCS: A0425; A0429 ==

== ENCOUNTER 2019-08-17 21:28 | Outpatient (CLI) | payer OTHER | END 2019-08-17 21:29 | disposition critical access hospital (66) | LOC: EMS 21:28 | PROVIDERS: ATTEND Surgery | DX: M54.9 Dorsalgia, unspecified (principal) | CPT/HCPCS: A0425; A0429 ==

== ENCOUNTER 2019-08-17 21:47 | Emergency (ER) | payer OTHER ==
--- NOTE | 2019-08-17 22:14 | ED Physician Documentation ---
History of Present Illness - Stated complaint Stated Complaint: GLF/ BACK PX - Chief complaint Chief Complaint: Back Pain - History obtained from History obtained from: Patient (69 yo M w/ hx/o parkinsons and heart disease s/p cabg who presents with right upper back pain after a ground level fall 4 days ago. Pt states he was standing in front of a mirror and felt dizzy and weak and then fell onto his back. He did not hit head or lose consciousness. He reports hx/o periodic dizziness and was told last time he was here it was likely due to dehydration. He has been trying to increase his water intake. He denies having any confusion, headache, speech difficulty, focal weakness, chest pain, palpitations, or dyspnea prior to fall. He was able to get up on his own. He presents today because the pain in the right back has prevented him from getting himself into bed and he has difficulty getting comfortable. He has not attempted any pain medication for this issue.) Review of Systems Constitutional: reports: Reviewed and negative Eyes: reports: Reviewed and negative Ears: reports: Reviewed and negative Nose: reports: Reviewed and negative Cardiac: reports: Reviewed and negative Respiratory: reports: Reviewed and negative GI: reports: Reviewed and negative : reports: Reviewed and negative Skin: reports: Reviewed and negative Musculoskeletal: reports: Back pain. denies: Neck pain, Extremity pain, Joint pain, Extremity swelling, Joint swelling, Pain with weight bearing Neurologic: reports: Near syncope. denies: Generalized weakness, Focal weakness, Numbness, Difficulty speaking, Syncope, Seizure, Confused, Altered mental status, Unresponsive, Headache, Head injury, LOC PD PAST MEDICAL HISTORY - Past Medical History Past Medical History: Yes Cardiovascular: High cholesterol, Coronary artery disease, [place] Respiratory: None Neuro: Parkinson's Endocrine/Autoimmune: None GI: None : Benign prostate hypertrophy HEENT: None Psych: None Musculoskeletal: None Derm: None - Past Surgical History Past Surgical History: Yes Ortho: Other Cardiovascular: CABG, Coronary stent - Present Medications Home Medications: Ambulatory Orders Medication Instructions Recorded Confirmed Aspirin 81 mg PO DAILY 12/17/14 08/17/19 Atorvastatin Calcium 80 mg PO DAILY 12/17/14 08/17/19 Carbidopa/Levodopa [Carbidopa-Levo 3 each PO QID 12/17/14 08/17/19 10-100 mg Odt] Terazosin [Hytrin] 4 mg PO DAILY 12/17/14 08/17/19 Rasagiline [Azilect] 1 tab PO DAILY 10/26/16 08/17/19 Clopidogrel [Plavix] 75 mg PO DAILY 08/17/19 08/17/19 Lidocaine Patch 5% [Lidoderm Patch] 1 patch TOP DAILY PRN #10 patch 08/17/19 Metoprolol Tartrate 50 mg PO BID 08/17/19 08/17/19 - Allergies Allergies/Adverse Reactions: Allergies Allergy/AdvReac Type Severity Reaction Status Date / Time lisinopril Allergy Unknown Verified 08/17/19 21:57 - Social History Does the pt smoke?: No Smoking Status: Never smoker Does the pt drink ETOH?: No Does the pt have substance abuse?: No - Immunizations Immunizations are current?: No Immunizations: Other immun not current - POLST Patient has POLST: No PD ED PE NORMAL - Vitals Vital signs reviewed: Yes - General General: Alert and oriented X 3, No acute distress, Well developed/nourished - HEENT HEENT: Atraumatic, PERRL, EOMI - Neck Neck: Supple, no meningeal sign, No bony TTP, No adenopathy - Cardiac Cardiac: RRR, No murmur, No gallop, No rub, Strong equal pulses - Respiratory Respiratory: No respiratory distress, Clear bilaterally - Abdomen Abdomen: Normal bowel sounds, Non tender, Non distended - Back Back: No CVA TTP, No spinal TTP, Other (no spinal ttp; has right posterior rib ttp, no crepitus or contusions, no rash. ) - Derm Derm: Normal color, Warm and dry, No rash - Extremities Extremities: No deformity, No tenderness to palpate, Normal ROM s pain, No edema, No calf tenderness / cord - Neuro Neuro: Alert and oriented X 3 Eye Opening: Spontaneous Motor: Obeys Commands Verbal: Oriented GCS Score: 15 - Psych Psych: Normal mood, Normal affect Results - Vitals Vitals: Vital Signs - 24 hr 08/17/19 08/17/19 08/17/19 21:53 22:04 22:15 Temperature 36.7 C Heart Rate 65 66 Respiratory 18 18 17 Rate Blood Pressure 133/75 H 142/75 H O2 Saturation 99 99 08/17/19 08/17/19 08/17/19 22:24 22:25 22:53 Temperature Heart Rate 64 Respiratory 17 18 17 Rate Blood Pressure 133/76 H O2 Saturation 100 08/17/19 23:19 Temperature Heart Rate Respiratory 17 Rate Blood Pressure O2 Saturation Oxygen O2 Source Room air - EKG (time done) 2 Rate: Rate (enter#) (71) Rhythm: NSR [place]: Normal Ischemia: T wave inversion, Other (ant/lat leads present 10/2016 and 10/2018) Compare to prior EKG: Unchanged from prior EKG Computer interpretation: Agree with computer - Labs Labs: Laboratory Tests 08/17/19 08/17/19 08/17/19 22:50 22:50 22:50 WBC 5.7 RBC 4.10 L Hgb 13.1 L Hct 39.7 L MCV 96.8 H MCH 32.0 H MCHC 33.0 RDW 12.4 Plt Count 185 MPV 9.0 Neut # (Auto) 4.4 Lymph # (Auto) 0.6 L [place] # (Auto) 0.5 Eos # (Auto) 0.1 Baso # (Auto) 0.1 Absolute Nucleated RBC 0.00 Nucleated RBC % 0.0 Sodium 137 Potassium 4.0 Chloride 100 L Carbon Dioxide 28 Anion Gap 9.0 BUN 34 H Creatinine 1.1 Estimated GFR (MDRD) 67 L Glucose 94 Calcium 9.0 Total Bilirubin 0.4 AST 20 ALT < 10 L Alkaline Phosphatase 92 Troponin I High Sens 3.3 Total Protein 7.6 Albumin 4.3 Globulin 3.3 Albumin/Globulin Ratio 1.3 Lipase 39 PD MEDICAL DECISION MAKING - ED course Complexity details: reviewed old records, reviewed results, re-evaluated patient, considered differential, d/w patient ED course: Pt presented w/ right posterior rib pain after a fall several days ago. His xray was negative for acute fracture. I did also do a cardiac workup as pt has hx/o heart disease and states that he was dizzy prior to the fall, though dizziness is not uncommon for him. His EKG was baseline and his labs were reassuring. He has a mildly elevated BUN which was similar to his past BUN, he was encouraged to take po fluids. I will place pt on a lidocaine patch and he may take tylenol as needed for the rib pain. I discussed return precautions with the patient and he voiced understanding and all questions were answered. Departure - Departure Disposition: 01 Home, Self Care Clinical Impression: Contusion of rib on right side Qualifiers: Encounter type: initial encounter Qualified Code(s): S20.211A - Contusion of right front wall of thorax, initial encounter Condition: Good Instructions: ED Contusion Rib Prescriptions: Lidocaine Patch 5% [Lidoderm Patch] 1 patch TOP DAILY PRN #10 patch PRN Reason: pain Comments: You presented with right posterior rib pain. We xray'd the area and there was no indication of fracture. Bruised ribs can be quite uncomfortable for several weeks however. I recommend using the lidocaine patch I have ordered and you may also take Acetaminophen (Tylenol) 650mg every 6 hours as needed for pain. I obt ained labs given your dizziness and you are still slightly dehydrated so continue to work on getting plenty of oral fluids each day. Return to the ER if you have worsening or new symptoms. Discharge Date/Time: 08/17/19 23:25
--- NOTE | 2019-08-17 22:40 | XRAY Report ---
Reason: fall 4 days ago. right posterior rib pain, chest wall pain Procedure Date: 08/17/2019 Accession Number: [id number] / [id number] Procedure: XR - Ribs w/PA Chest RT CPT Code: Final Report FULL RESULT: EXAM: RIGHT RIB RADIOGRAPHY EXAM DATE: 08/17/2019 10:28 PM. CLINICAL HISTORY: Fall 4 days ago. Right posterior rib pain, chest wall pain. COMPARISON: CHEST 1 VIEW 11/06/2018 12:51 PM. TECHNIQUE: 1 view of the chest and 2 views of the ribs. Metallic marker stent region of interest. FINDINGS: Bones: Unremarkable. No definite rib fracture or bone lesion. Lungs: No focal opacities. Stable right lower lung granuloma. No pneumothorax. No pleural effusions. Mediastinum: Heart and mediastinal contours are unremarkable. Stable sternotomy changes. Other: None. IMPRESSION: No radiographic evidence of right rib fracture. No evidence of acute abnormality. RADIA
[2019-08-17] MEDS ORDERED: ACETAMINOPHEN 325 MG TABLET PO STA (22:43)
[2019-08-17 22:54] VITALS: BP 133/76
[2019-08-17 22:55] LABS: BASOPHILS # (AUTO) 0.1 10^3/uL (0.0-0.1); BASOPHILS % (AUTO) 0.9 %; EOSINOPHILS # (AUTO) 0.1 10^3/uL (0.0-0.7); EOSINOPHILS % (AUTO) 0.9 %; HGB - HEMOGLOBIN 13.1 g/dL (14.0-18.0); LYMPHOCYTES # (AUTO) 0.6 10^3/uL (1.5-3.5); LYMPHOCYTES % (AUTO) 10.2 %; MEAN CORPUSCULAR VOLUME 96.8 fL (80.0-94.0); MONOCYTES # (AUTO) 0.5 10^3/uL (0.0-1.0); MONOCYTES % (AUTO) 9.2 %; NEUTROPHILS # (AUTO) 4.4 10^3/uL (1.5-6.6); NEUTROPHILS % (AUTO) 78.3 %; PLT - PLATELET COUNT 185 10^3/uL (130-450); RED CELL DISTRIBUTION WIDTH 12.4 % (12.0-15.0); WHITE BLOOD COUNT 5.7 x10^3/uL (4.8-10.8)
[2019-08-17 23:08] LABS: ALBUMIN 4.3 g/dL (3.2-5.5); ALBUMIN/GLOBULIN RATIO 1.3 (1.0-2.2); ALKALINE PHOSPHATASE 92 IU/L (42-121); ALT ALANINE AMINOTRANSFERASE < 10 IU/L (10-60); AST ASPARTATE AMINOTRANSFERASE 20 IU/L (10-42); BILIRUBIN,TOTAL 0.4 mg/dL (0.2-1.0); BUN - BLOOD UREA NITROGEN 34 mg/dL (6-20); CARBON DIOXIDE - CO2 28 mmol/L (21-32); CHLORIDE 100 mmol/L (101-111); CREATININE 1.1 mg/dL (0.6-1.2); GLUCOSE 94 mg/dL (70-100); LIPASE 39 U/L (22-51); SODIUM 137 mmol/L (135-145); TOTAL PROTEIN 7.6 g/dL (6.7-8.2)
== END 2019-08-17 23:25 | disposition home or self-care (01) ==
LOC: EDUNIT# → ED 21:47
DX: S20.211A Contusion of right front wall of thorax, initial encounter (principal); W18.30XA Fall on same level, unspecified, initial encounter; Y93.89 Activity, other specified; Y92.002 Bathroom of unspecified non-institutional (private) residence as the place of occurrence of the external cause; G20 Parkinson's disease; I25.810 Atherosclerosis of coronary artery bypass graft(s) without angina pectoris
CPT/HCPCS: 36415; 71101; 80053; 83690; 84484; 85025; 93005; 99284; A9270

== ENCOUNTER 2019-10-20 12:54 | Outpatient (CLI) | payer OTHER | END 2019-10-20 12:55 | disposition critical access hospital (66) | LOC: EMS 12:54 | PROVIDERS: ATTEND Surgery | DX: R53.1 Weakness (principal) | CPT/HCPCS: A0425; A0429 ==

== ENCOUNTER 2019-10-20 13:16 | Emergency (ER) | payer OTHER ==
[2019-10-20 14:46] LABS: BASOPHILS % (AUTO) 0.8 %; EOSINOPHILS % (AUTO) 0.2 %; HGB - HEMOGLOBIN 12.8 g/dL (14.0-18.0); LYMPHOCYTES # (AUTO) 0.4 10^3/uL (1.5-3.5); LYMPHOCYTES % (AUTO) 7.5 %; MEAN CORPUSCULAR HEMOGLOBIN 31.9 pg (27.0-31.0); MEAN CORPUSCULAR VOLUME 96.8 fL (80.0-94.0); MONOCYTES # (AUTO) 0.4 10^3/uL (0.0-1.0); MONOCYTES % (AUTO) 8.4 %; NEUTROPHILS % (AUTO) 82.9 %; PLT - PLATELET COUNT 182 10^3/uL (130-450); RED BLOOD COUNT 4.01 10^6/uL (4.70-6.10); RED CELL DISTRIBUTION WIDTH 12.4 % (12.0-15.0); WHITE BLOOD COUNT 4.8 x10^3/uL (4.8-10.8)
[2019-10-20 15:01] LABS: ALBUMIN 4.1 g/dL (3.2-5.5); ALBUMIN/GLOBULIN RATIO 1.4 (1.0-2.2); ALKALINE PHOSPHATASE 82 IU/L (42-121); ALT ALANINE AMINOTRANSFERASE < 10 IU/L (10-60); AST ASPARTATE AMINOTRANSFERASE 20 IU/L (10-42); BILIRUBIN,TOTAL 0.5 mg/dL (0.2-1.0); BUN - BLOOD UREA NITROGEN 38 mg/dL (6-20); CALCIUM 8.7 mg/dL (8.5-10.3); CARBON DIOXIDE - CO2 28 mmol/L (21-32); CHLORIDE 99 mmol/L (101-111); CREATININE 1.3 mg/dL (0.6-1.2); GLUCOSE 109 mg/dL (70-100); LIPASE 41 U/L (22-51); SODIUM 138 mmol/L (135-145)
[2019-10-20] MEDS ORDERED: SODIUM CHLORIDE 0.9% 1,000 ML IV STA ×2 (16:56→17:33)
--- NOTE | 2019-10-20 17:00 | ED Physician Documentation ---
History of Present Illness - Stated complaint Stated Complaint: WEAKNESS - Chief complaint Chief Complaint: General - History obtained from History obtained from: Patient - History of Present Illness Timing: Prior to arrival, How many weeks ago (4) - Additonal information Additional information: 69-year-old male presents to the emergency department with a chief complaint of progressive weakness in his legs and a feeling that he is cognitively declining. He has a history of Parkinson's disorder. States for the last few weeks he finds that his gait is slower and he is shuffling more. His steps are not as long. He has been having a difficult time completing most of his home tasks such as taking his medications or counting them appropriately and often has a hard time with word finding Patient denies slurred speech, facial droop, sudden onset headache. Patient denies any fevers, chest pain, dyspnea, nausea or vomiting. He denies urinary urgency or frequency. PCP is Dr. Doss located in [place] with the [facility].Patient is also seen by neurology also through the [facility]. Patient last saw them about 2 months ago and has an appointment upcoming within the next 6 to 8 weeks. meds: Plavix, metoprolol, levodopa, terrazosin, aspirin, statin, rasagiline PD PAST MEDICAL HISTORY - Past Medical History Cardiovascular: High cholesterol, Coronary artery disease, [place] Respiratory: None Neuro: Parkinson's Endocrine/Autoimmune: None GI: None : Benign prostate hypertrophy HEENT: None Psych: None Musculoskeletal: None Derm: None - Past Surgical History Past Surgical History: Yes Ortho: Other Cardiovascular: CABG, Coronary stent - Present Medications Home Medications: Ambulatory Orders Medication Instructions Recorded Confirmed Aspirin 81 mg PO DAILY 12/17/14 10/20/19 Atorvastatin Calcium 80 mg PO DAILY 12/17/14 10/20/19 Rasagiline [Azilect] 1 tab PO DAILY 10/26/16 10/20/19 Clopidogrel [Plavix] 75 mg PO DAILY 08/17/19 10/20/19 Metoprolol Tartrate 50 mg PO BID 08/17/19 08/17/19 Carbidopa/Levodopa 25/100 [Sinemet 3 tab PO QID 10/20/19 10/20/19 25 mg/100 mg] Terazosin HCl 4 mg PO DAILY PM 10/20/19 10/20/19 - Allergies Allergies/Adverse Reactions: Allergies Allergy/AdvReac Type Severity Reaction Status Date / Time lisinopril Allergy Unknown Verified 10/20/19 16:30 - Social History Does the pt smoke?: No Smoking Status: Never smoker Does the pt drink ETOH?: No Does the pt have substance abuse?: No - Immunizations Immunizations are current?: No Immunizations: Other immun not current - POLST Patient has POLST: No PD ED PE NORMAL - General General: Alert and oriented X 3, No acute distress, Well developed/nourished - HEENT HEENT: PERRL, EOMI - Neck Neck: No adenopathy - Cardiac Cardiac: RRR, No murmur - Respiratory Respiratory: No respiratory distress - Abdomen Abdomen: Normal bowel sounds - Back Back: No CVA TTP - Derm Derm: Normal color, Warm and dry - Extremities Extremities: No deformity, Normal ROM s pain - Neuro Neuro: Alert and oriented X 3, 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 able to elevate legs without droop. shuffling gait. no tremor) Eye Opening: Spontaneous Motor: Obeys Commands Verbal: Oriented GCS Score: 15 - Psych Psych: Other (Flat affect) Results - Vitals Vitals: Vital Signs - 24 hr 10/20/19 10/20/19 13:25 16:19 Temperature 37.5 C 36.5 C Heart Rate 67 61 Respiratory 16 18 Rate Blood Pressure 101/48 L 141/70 H O2 Saturation 97 99 Oxygen O2 Source Room air - Labs Labs: Laboratory Tests 10/20/19 10/20/19 10/20/19 14:35 14:35 17:10 WBC 4.8 RBC 4.01 L Hgb 12.8 L Hct 38.8 L MCV 96.8 H MCH 31.9 H MCHC 33.0 RDW 12.4 Plt Count 182 MPV 9.0 Neut # (Auto) 4.0 Lymph # (Auto) 0.4 L [place] # (Auto) 0.4 Eos # (Auto) 0.0 Baso # (Auto) 0.0 Absolute Nucleated RBC 0.00 Nucleated RBC % 0.0 Sodium 138 Potassium 4.3 Chloride 99 L Carbon Dioxide 28 Anion Gap 11.0 BUN 38 H Creatinine 1.3 H Estimated GFR (MDRD) 55 L Glucose 109 H Calcium 8.7 Total Bilirubin 0.5 AST 20 ALT < 10 L Alkaline Phosphatase 82 Total Protein 7.0 Albumin 4.1 Globulin 2.9 Albumin/Globulin Ratio 1.4 Lipase 41 Urine Color YELLOW Urine Clarity CLEAR Urine pH 5.5 Ur Specific [place] >=1.030 H Urine Protein NEGATIVE Urine Glucose (UA) NEGATIVE Urine Ketones TRACE Urine Occult Blood NEGATIVE Urine Nitrite NEGATIVE Urine Bilirubin NEGATIVE Urine Urobilinogen 0.2 (NORMAL) Ur Leukocyte Esterase NEGATIVE Ur Microscopic Review NOT INDICATED Urine Culture Comments NOT INDICATED PD MEDICAL DECISION MAKING - ED course Complexity details: reviewed results, re-evaluated patient, d/w patient ED course: 69-year-old male who has a history of Parkinson's presents to the emergency department with chief complaint that he is feeling progressively weaker in his lower extremities and is having some cognitive decline. - Initial review of labs showed some marked dehydration as evidenced by an increased BUN creatinine as well as osmolality of the urine. - Patient was given IV fluids in the emergency department. Though not fully resolved he did feel improved. - His urine showed no markers of infection - Patient's had no symptoms consistent with stroke or CVA. - Discussed lab findings with the patient. He feels ready for discharge home he reports that he has follow-up scheduled with his neurologist in about 6 to 8 weeks. I have recommended patient to increased his fluid intake to approximately 2 L of fluid a day. He seems to be taking only about 1500 mL of fluid. - Emergent return precautions discussed for return visit to the ED. Departure - Departure Clinical Impression: Dehydration, Parkinsons disease, Generalized weakness Condition: Stable Instructions: ED Dehydration Comments: Bridger, I am glad that you are feeling better. I think a lot of of your symptoms may be related to the dehydration that we found on your labs today. Please try and increase your water intake to at least 2 L of fluid a day.Outside of dehydration your urine did not show any signs of infection, which I think is important. Please discuss this emergency department visit with your primary care provider. I think it is important to follow-up more closely with your neurologist as well.If you find that you have any further worsening of the weakness, you have any fevers, abdominal pain, feel faint or dizzy, then please return to the emergency department for reevaluation.
[2019-10-20 17:18] LABS: BILIRUBIN,URINE NEGATIVE (NEGATIVE); GLUCOSE, URINE (UA) NEGATIVE (NEGATIVE); KETONES,URINE (UA) TRACE mg/dL (NEGATIVE); LEUKOCYTE ESTERASE, URINE NEGATIVE (NEGATIVE); NITRITE,URINE NEGATIVE (NEGATIVE); OCCULT BLOOD,URINE NEGATIVE (NEGATIVE); PH,URINE 5.5 PH (5.0-7.5); PROTEIN,URINE NEGATIVE (NEGATIVE); UROBILINOGEN,URINE 0.2 (NORMAL) E.U./dL (NORMAL)
[2019-10-20 17:20] LABS: CLARITY,URINE CLEAR (CLEAR)
[2019-10-20 18:46] VITALS: BP 120/80
== END 2019-10-20 18:47 | disposition home or self-care (01) ==
LOC: EDUNIT# → ED 13:16
DX: E86.0 Dehydration (principal); G20 Parkinson's disease; R53.1 Weakness; I25.10 Atherosclerotic heart disease of native coronary artery without angina pectoris; Z95.1 Presence of aortocoronary bypass graft; Z79.02 Long term (current) use of antithrombotics/antiplatelets; Z79.82 Long term (current) use of aspirin
CPT/HCPCS: 36415; 80053; 81001; 81003; 83690; 85025; 87086; 96360; 99281

== ENCOUNTER 2019-11-01 15:48 | Emergency (ER) | payer OTHER ==
[2019-11-01 16:35] LABS: BASOPHILS % (AUTO) 0.3 %; EOSINOPHILS % (AUTO) 0.2 %; HGB - HEMOGLOBIN 13.1 g/dL (14.0-18.0); LYMPHOCYTES # (AUTO) 0.8 10^3/uL (1.5-3.5); LYMPHOCYTES % (AUTO) 8.1 %; MEAN CORPUSCULAR HEMOGLOBIN 32.3 pg (27.0-31.0); MEAN CORPUSCULAR HGB CONC 33.6 g/dL (32.0-36.0); MEAN CORPUSCULAR VOLUME 96.1 fL (80.0-94.0); MEAN PLATELET VOLUME 9.4 fL (7.4-11.4); MONOCYTES # (AUTO) 0.8 10^3/uL (0.0-1.0); MONOCYTES % (AUTO) 8.3 %; NEUTROPHILS # (AUTO) 7.6 10^3/uL (1.5-6.6); PLT - PLATELET COUNT 182 10^3/uL (130-450); RED BLOOD COUNT 4.06 10^6/uL (4.70-6.10); RED CELL DISTRIBUTION WIDTH 12.5 % (12.0-15.0); WHITE BLOOD COUNT 9.3 x10^3/uL (4.8-10.8)
[2019-11-01] MEDS ORDERED: TETANUS/DIPHTHERIA/PERTUSSIS 0.5 ML SYRINGE IM ONE (16:37)
--- NOTE | 2019-11-01 16:38 | ED Physician Documentation ---
History of Present Illness - Stated complaint Stated Complaint: FALL/RT SIDE PX - Chief complaint Chief Complaint: Neuro - History obtained from History obtained from: Patient - History of Present Illness Timing: Today Pain level max: 0 Pain level now: 0 - Additonal information Additional information: 69-year-old male states that he tripped and fell at home, striking his head on a cabinet as he fell. He states he may have briefly lost consciousness, he is unsure. No syncope. No palpitations. No chest pain. No shortness of breath. He does recall the fall, but does not remember hitting the floor. He remembers tripping and losing his balance. He is on Plavix. No neck or back pain. No numbness or tingling. Unknown last tetanus. Has an abrasion to the back of the head. This occurred approximately 8 hours prior to arrival Review of Systems Constitutional: denies: Fever, Chills Cardiac: denies: Chest pain / pressure Respiratory: denies: Cough GI: denies: Nausea, Vomiting, Diarrhea Skin: denies: Rash Musculoskeletal: denies: Neck pain Neurologic: denies: Headache PD PAST MEDICAL HISTORY - Past Medical History Past Medical History: Yes Cardiovascular: High cholesterol, Coronary artery disease, [place] Respiratory: None Neuro: Parkinson's Endocrine/Autoimmune: None GI: None : Benign prostate hypertrophy HEENT: None Psych: None Musculoskeletal: None Derm: None - Past Surgical History Past Surgical History: Yes Ortho: Other Cardiovascular: CABG, Coronary stent - Present Medications Home Medications: Ambulatory Orders Medication Instructions Recorded Confirmed Aspirin 81 mg PO DAILY 12/17/14 10/20/19 Atorvastatin Calcium 80 mg PO DAILY 12/17/14 10/20/19 Rasagiline [Azilect] 1 tab PO DAILY 10/26/16 10/20/19 Clopidogrel [Plavix] 75 mg PO DAILY 08/17/19 10/20/19 Metoprolol Tartrate 25 mg PO BID 08/17/19 08/17/19 Carbidopa/Levodopa 25/100 [Sinemet 3 tab PO QID 10/20/19 10/20/19 25 mg/100 mg] Terazosin HCl 4 mg PO DAILY PM 10/20/19 10/20/19 - Allergies Allergies/Adverse Reactions: Allergies Allergy/AdvReac Type Severity Reaction Status Date / Time lisinopril Allergy Unknown Verified 10/20/19 16:30 - Living Situation Living Arrangement: reports: At home - Social History Does the pt smoke?: No Smoking Status: Never smoker Does the pt drink ETOH?: No Does the pt have substance abuse?: No - Family History Family history: reports: Non contributory - Immunizations Immunizations are current?: No Immunizations: Other immun not current - POLST Patient has POLST: No PD ED PE NORMAL - Vitals Vital signs reviewed: Yes - General General: Alert and oriented X 3, No acute distress, Well developed/nourished - HEENT HEENT: PERRL, Other (Abrasion to the back of his head. No laceration. No bleeding) - Neck Neck: Supple, no meningeal sign - Cardiac Cardiac: RRR, No murmur - Respiratory Respiratory: Clear bilaterally - Abdomen Abdomen: Normal bowel sounds, Soft, Non tender, Non distended - Derm Derm: Warm and dry - Extremities Extremities: No deformity - Neuro Neuro: Alert and oriented X 3 - Psych Psych: Normal mood, Normal affect Results - Vitals Vitals: Vital Signs - 24 hr 11/01/19 11/01/19 11/01/19 15:51 16:15 16:40 Temperature 36.9 C Heart Rate 92 86 Respiratory 20 Rate Blood Pressure 149/70 H 169/75 H O2 Saturation 98 97 11/01/19 17:00 Temperature Heart Rate 96 Respiratory 18 Rate Blood Pressure 117/70 O2 Saturation 98 Oxygen O2 Source Room air - EKG (time done) 1607 Rate: Rate (enter#) (91) Rhythm: NSR [place]: Normal Intervals: Normal [place] QRS: Normal Ischemia: Non specific changes - Labs Labs: Laboratory Tests 11/01/19 11/01/19 16:22 16:22 WBC 9.3 RBC 4.06 L Hgb 13.1 L Hct 39.0 L MCV 96.1 H MCH 32.3 H MCHC 33.6 RDW 12.5 Plt Count 182 MPV 9.4 Neut # (Auto) 7.6 H Lymph # (Auto) 0.8 L [place] # (Auto) 0.8 Eos # (Auto) 0.0 Baso # (Auto) 0.0 Absolute Nucleated RBC 0.00 Nucleated RBC % 0.0 Sodium 137 Potassium 3.7 Chloride 100 L Carbon Dioxide 28 Anion Gap 9.0 BUN 33 H Creatinine 1.5 H Estimated GFR (MDRD) 47 L Glucose 135 H Calcium 9.0 - Rads (name of study) Head CT Radiology: Prelim report reviewed, EMP read contemporaneously, See rad report (No acute abnormality) PD MEDICAL DECISION MAKING - ED course Complexity details: reviewed results, re-evaluated patient, considered differential, d/w patient ED course: No bony tenderness over the ribs. No ecchymosis. The abrasion was cleansed and bandaged. Head CT is negative. No significant lab abnormalities. Patient is ambulating without difficulty. Patient counseled regarding signs and symptoms for which I believe and urgent re-evaluation would be necessary. Patient with good understanding of and agreement to plan and is comfortable going home at this time This document was made in part using voice recognition software. While efforts are made to proofread this document, sound alike and grammatical errors may occur. tdap given Departure - Departure Disposition: 01 Home, Self Care Clinical Impression: Dehydration, Abrasion Fall Qualifiers: Encounter type: initial encounter Qualified Code(s): W19.XXXA - Unspecified fall, initial encounter Head injury Qualifiers: Encounter type: initial encounter Qualified Code(s): S09.90XA - Unspecified injury of head, initial encounter Contusion of flank Qualifiers: Encounter type: initial encounter Qualified Code(s): S30.1XXA - Contusion of abdominal wall, initial encounter Condition: Good Instructions: ED Abrasion, ED Contusion Soft Tissue, ED Dehydration, ED Head Injury Closed Follow-Up: Sheela Doss MD [Primary Care Provider] - Within 1 week Comments: Return if you worsen. Drink plenty of water at home. Follow-up with your doctor for further care. Discharge Date/Time: 11/01/19 17:26
[2019-11-01 16:43] LABS: CREATININE 1.5 mg/dL (0.6-1.2)
--- NOTE | 2019-11-01 16:43 | CT Report ---
PROCEDURE: HEAD WO INDICATIONS: fall, head injury, pt on plavix TECHNIQUE: Noncontrast 4.5 mm thick angled axial sections acquired from the foramen magnum to the vertex. For r adiation dose reduction, the following was used: automated exposure control, adjustment of mA and/or kV according to patient size. COMPARISON: None. FINDINGS: Image quality: Excellent. CSF spaces: Basal cisterns are patent. No extra-axial fluid collections. Ventricles are normal in size and shape. Brain: No midline shift. No intracranial masses or hemorrhage. [place]istan-white matter interface is norm al. Skull and face: Calvarium and visualized facial bones are intact, without suspicious lesions. Sinuses: Visualized sinuses and mastoids are clear. IMPRESSION: No acute intracranial disease process. Reviewed by: Radha Mann MD, PhD on 11/01/2019 4:42 PM PDT Approved by: Radha Mann MD, PhD on 11/01/2019 4:42 PM PDT Station ID: [id number]
[2019-11-01] MEDS ORDERED: BACITRACIN ZINC OINT 1 PACKET TOP STA (17:04)
[2019-11-01 17:12] VITALS: BP 117/70
[2019-11-01] MEDS ORDERED: ACETAMINOPHEN 325 MG TABLET PO STA (17:22)
== END 2019-11-01 17:26 | disposition home or self-care (01) ==
LOC: ED 15:48
DX: S09.90XA Unspecified injury of head, initial encounter (principal); S00.01XA Abrasion of scalp, initial encounter; S30.1XXA Contusion of abdominal wall, initial encounter; W01.190A Fall on same level from slipping, tripping and stumbling with subsequent striking against furniture, initial encounter; Y92.009 Unspecified place in unspecified non-institutional (private) residence as the place of occurrence of the external cause; E86.0 Dehydration; Z79.01 Long term (current) use of anticoagulants
CPT/HCPCS: 36415; 70450; 80048; 85025; 90471; 93005; 99284

== ENCOUNTER 2019-11-01 20:23 | Outpatient (CLI) | payer OTHER | END 2019-11-01 20:24 | disposition critical access hospital (66) | LOC: EMS 20:23 | PROVIDERS: ATTEND Surgery | DX: R41.0 Disorientation, unspecified (principal) | CPT/HCPCS: A0425; A0429 ==

== ENCOUNTER 2019-11-01 20:44 | Emergency (ER) | payer OTHER ==
--- NOTE | 2019-11-01 22:34 | ED Physician Documentation ---
History of Present Illness - Stated complaint Stated Complaint: CONFUSED - Chief complaint Chief Complaint: Neuro - History obtained from History obtained from: Patient (Patient is a 69-year-old male with worsening Parkinson's disease and dementia. He was seen here earlier today and presents again for reevaluation he denies any new complaints he is requesting a bag of IV fluids and then would like to be discharged home.), Other (Earlier today he was seen because he had stumbled on scratched the back of his head there is no significant trauma he had negative CT of the head and negative lab evaluation as well as negative EKG.) Review of Systems Constitutional: reports: Reviewed and negative Eyes: reports: Reviewed and negative Ears: reports: Reviewed and negative Nose: reports: Reviewed and negative Throat: reports: Reviewed and negative Cardiac: reports: Reviewed and negative Respiratory: reports: Reviewed and negative GI: reports: Reviewed and negative : reports: Reviewed and negative Skin: reports: Reviewed and negative Musculoskeletal: reports: Reviewed and negative Neurologic: reports: Generalized weakness, Other (Worsening Parkinson's disease) Psychiatric: reports: Reviewed and negative Endocrine: reports: Reviewed and negative Immunocompromised: reports: Reviewed and negative PD PAST MEDICAL HISTORY - Past Medical History Cardiovascular: High cholesterol, Coronary artery disease, [place] Respiratory: None Neuro: Parkinson's Endocrine/Autoimmune: None GI: None : Benign prostate hypertrophy HEENT: None Psych: None Musculoskeletal: None Derm: None - Past Surgical History Past Surgical History: Yes Ortho: Other Cardiovascular: CABG, Coronary stent - Present Medications Home Medications: Ambulatory Orders Medication Instructions Recorded Confirmed Aspirin 81 mg PO DAILY 12/17/14 10/20/19 Atorvastatin Calcium 80 mg PO DAILY 12/17/14 10/20/19 Rasagiline [Azilect] 1 tab PO DAILY 10/26/16 10/20/19 Clopidogrel [Plavix] 75 mg PO DAILY 08/17/19 10/20/19 Metoprolol Tartrate 25 mg PO BID 08/17/19 08/17/19 Carbidopa/Levodopa 25/100 [Sinemet 3 tab PO QID 10/20/19 10/20/19 25 mg/100 mg] Terazosin HCl 4 mg PO DAILY PM 10/20/19 10/20/19 - Allergies Allergies/Adverse Reactions: Allergies Allergy/AdvReac Type Severity Reaction Status Date / Time lisinopril Allergy Unknown Verified 10/20/19 16:30 - Social History Does the pt smoke?: No Smoking Status: Never smoker Does the pt drink ETOH?: No Does the pt have substance abuse?: No - Immunizations Immunizations are current?: No Immunizations: Other immun not current - POLST Patient has POLST: No PD ED PE NORMAL - Vitals Vital signs reviewed: Yes - General General: Alert and oriented X 3, No acute distress, Well developed/nourished - HEENT HEENT: PERRL, Other (Abrasion to the posterior scalp no step-offs or deformities no depressions of the skull no acute missing teeth no raccoon eyes no neely sign no septal hematoma no hemotympanum.) - Neck Neck: Supple, no meningeal sign, No JVD - Cardiac Cardiac: RRR, No murmur, Strong equal pulses - Respiratory Respiratory: No respiratory distress, Clear bilaterally - Abdomen Abdomen: Normal bowel sounds, Soft, Non tender, Non distended, No organomegaly - Derm Derm: Normal color, Warm and dry, No rash - Extremities Extremities: No deformity, No tenderness to palpate, Normal ROM s pain, No edema, No calf tenderness / cord - Neuro Neuro: Alert and oriented X 3, 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 challenge is requesting to be discharged home at this time.), d/w patient, other (walker provided to assist with ambulation.) Departure - Departure Disposition: 01 Home, Self Care Clinical Impression: Parkinsons disease Condition: Stable Instructions: Parkinson Disease Dc Follow-Up: your, doctor [Other] - Tomorrow Comments: Follow-up with your doctor tomorrow.
[2019-11-01] MEDS ORDERED: SODIUM CHLORIDE 0.9% 1,000 ML IV STA (22:47)
[2019-11-02 00:36] VITALS: BP 145/82
== END 2019-11-02 00:35 | disposition home or self-care (01) ==
LOC: EDUNIT# → ED 20:44
DX: G20 Parkinson's disease (principal); S09.90XA Unspecified injury of head, initial encounter; S00.01XA Abrasion of scalp, initial encounter; S30.1XXA Contusion of abdominal wall, initial encounter; W01.190A Fall on same level from slipping, tripping and stumbling with subsequent striking against furniture, initial encounter; Y92.009 Unspecified place in unspecified non-institutional (private) residence as the place of occurrence of the external cause; E86.0 Dehydration; Z79.01 Long term (current) use of anticoagulants
CPT/HCPCS: 36415; 70450; 80048; 85025; 90471; 90715; 93005; 96360; 99283; 99284; A9270

== ENCOUNTER 2019-11-07 21:15 | Outpatient (CLI) | payer OTHER | END 2019-11-07 21:16 | disposition critical access hospital (66) | LOC: EMS 21:15 | PROVIDERS: ATTEND Surgery | DX: R42 Dizziness and giddiness (principal); R53.1 Weakness | CPT/HCPCS: A0425; A0429 ==

== ENCOUNTER 2019-11-07 21:36 | Emergency (ER) | payer OTHER ==
--- NOTE | 2019-11-07 21:44 | ED Physician Documentation ---
PD HPI SYNCOPE - Stated complaint Stated Complaint: WEAKNESS - Chief complaint Chief Complaint: Neuro - History obtained from History obtained from: Patient - History of Present Illness Witnessed: Unwitnessed Timing - onset: Today (He has been having a feeling of general weakness and difficulty standing as his legs give out and also a feeling of lightheadedness with first sitting or standing up. He felt like he might pass out today) Preceding symptoms: Light headed. No: Headache, Chest pain, Abdominal pain, Nausea / vomiting Associated symptoms: No: Chest pain, Nausea / vomiting Contributing factors: Decreased PO intake, Just stood up. No: Recent med change Injury occurred: No: Fell, Head injury, Neck injury Treatment SPEECH LANGUAGE THERAPIST: Fluids Similar symptoms before: No diagnosis (He has been seen in the ER couple of times with similar symptoms and felt to be under hydrated and had improvement with IV fluids. No other obvious lab or exam abnormalities) Recently seen: Emergency Dept Review of Systems Constitutional: reports: Myalgias, Fatigue. denies: Fever, Chills Nose: denies: Rhinorrhea / runny nose, Congestion Throat: denies: Sore throat Cardiac: denies: Chest pain / pressure Respiratory: denies: Cough GI: denies: Abdominal Pain, Nausea, Vomiting, Diarrhea, Bloody / black stool Neurologic: reports: Generalized weakness (but more so of his legs), Near syncope, Syncope (couple weeks ago, not today). denies: Focal weakness, Numbness Endocrine: denies: Weight loss PD PAST MEDICAL HISTORY - Past Medical History Cardiovascular: High cholesterol, Coronary artery disease, [place] Respiratory: None Neuro: Parkinson's Endocrine/Autoimmune: None GI: None : Benign prostate hypertrophy HEENT: None Psych: None Musculoskeletal: None Derm: None - Past Surgical History Past Surgical History: Yes Ortho: Other Cardiovascular: CABG, Coronary stent - Present Medications Home Medications: Ambulatory Orders Medication Instructions Recorded Confirmed Aspirin 81 mg PO DAILY 12/17/14 10/20/19 Atorvastatin Calcium 80 mg PO DAILY 12/17/14 10/20/19 Rasagiline [Azilect] 1 tab PO DAILY 10/26/16 10/20/19 Clopidogrel [Plavix] 75 mg PO DAILY 08/17/19 10/20/19 Metoprolol Tartrate 25 mg PO BID 08/17/19 08/17/19 Carbidopa/Levodopa 25/100 [Sinemet 3 tab PO QID 10/20/19 10/20/19 25 mg/100 mg] Terazosin HCl 4 mg PO DAILY PM 10/20/19 10/20/19 - Allergies Allergies/Adverse Reactions: Allergies Allergy/AdvReac Type Severity Reaction Status Date / Time lisinopril Allergy Unknown Verified 11/07/19 21:51 - Social History Does the pt smoke?: No Smoking Status: Never smoker Does the pt drink ETOH?: No Does the pt have substance abuse?: No - Immunizations Immunizations are current?: No Immunizations: Other immun not current - POLST Patient has POLST: No PD ED PE NORMAL - Vitals Vital signs reviewed: Yes - General General: Alert and oriented X 3, No acute distress, Well developed/nourished - HEENT HEENT: Pharynx benign - Neck Neck: Supple, no meningeal sign, No adenopathy - Cardiac Cardiac: RRR, No murmur - Respiratory Respiratory: Clear bilaterally - Abdomen Abdomen: Normal bowel sounds, Soft, Non tender, Non distended - Back Back: No CVA TTP - Derm Derm: Normal color, Warm and dry - Extremities Extremities: No tenderness to palpate, Normal ROM s pain, No edema, No calf tenderness / cord - Neuro Neuro: Alert and oriented X 3, No motor deficit, Normal speech Eye Opening: Spontaneous Motor: Obeys Commands Verbal: Oriented GCS Score: 15 - Psych Psych: Normal mood, Normal affect Results - Vitals Vitals: Vital Signs - 24 hr 11/07/19 11/07/19 11/07/19 21:35 21:58 23:25 Temperature 37.1 C Heart Rate 95 98 91 Heart Rate [ Sitting] Heart Rate [ Supine] Respiratory 16 15 16 Rate Blood Pressure 181/86 H 179/88 H 145/71 H Blood Pressure [Sitting] Blood Pressure [Supine] O2 Saturation 98 97 97 11/08/19 11/08/19 00:12 01:00 Temperature 36.8 C Heart Rate 86 78 Heart Rate [ 91 Sitting] Heart Rate [ 89 Supine] Respiratory 15 17 Rate Blood Pressure 158/76 H 158/72 H Blood Pressure 179/81 H [Sitting] Blood Pressure 178/81 H [Supine] O2 Saturation 98 97 Oxygen O2 Source Room air - EKG (time done) 22:10 Rate: Rate (enter#) (91) Rhythm: NSR [place]: Normal Intervals: Normal [place] QRS: Normal Ischemia: Normal ST segments. No: ST elevation c/w ischemia, ST depression - Labs Labs: Laboratory Tests 11/07/19 11/07/19 11/07/19 22:00 22:17 22:17 WBC 5.1 RBC 3.86 L Hgb 12.3 L Hct 36.8 L MCV 95.3 H MCH 31.9 H MCHC 33.4 RDW 12.4 Plt Count 180 MPV 9.1 Neut # (Auto) 3.9 Lymph # (Auto) 0.6 L [place] # (Auto) 0.6 Eos # (Auto) 0.1 Baso # (Auto) 0.0 Absolute Nucleated RBC 0.00 Nucleated RBC % 0.0 Sodium 139 Potassium 3.5 Chloride 99 L Carbon Dioxide 28 Anion Gap 12.0 BUN 27 H Creatinine 1.2 Estimated GFR (MDRD) 60 L Glucose 173 H Lactic Acid Calcium 9.0 Magnesium 2.5 Total Bilirubin 0.5 AST 19 ALT < 10 L Alkaline Phosphatase 83 Total Creatine Kinase 143 Total Protein 6.9 Albumin 3.7 Globulin 3.2 Albumin/Globulin Ratio 1.2 Lipase 42 TSH Cortisol Urine Color YELLOW Urine Clarity CLEAR Urine pH 5.5 Ur Specific [place] 1.015 Urine Protein NEGATIVE Urine Glucose (UA) NEGATIVE Urine Ketones NEGATIVE Urine Occult Blood NEGATIVE Urine Nitrite NEGATIVE Urine Bilirubin NEGATIVE Urine Urobilinogen 0.2 (NORMAL) Ur Leukocyte Esterase NEGATIVE Ur Microscopic Review NOT INDICATED Urine Culture Comments NOT INDICATED 11/07/19 11/07/19 22:17 22:17 WBC RBC Hgb Hct MCV MCH MCHC RDW Plt Count MPV Neut # (Auto) Lymph # (Auto) [place] # (Auto) Eos # (Auto) Baso # (Auto) Absolute Nucleated RBC Nucleated RBC % Sodium Potassium Chloride Carbon Dioxide Anion Gap BUN Creatinine Estimated GFR (MDRD) Glucose Lactic Acid 1.3 Calcium Magnesium Total Bilirubin AST ALT Alkaline Phosphatase Total Creatine Kinase Total Protein Albumin Globulin Albumin/Globulin Ratio Lipase TSH 1.36 Cortisol 11.6 Urine Color Urine Clarity Urine pH Ur Specific [place] Urine Protein Urine Glucose (UA) Urine Ketones Urine Occult Blood Urine Nitrite Urine Bilirubin Urine Urobilinogen Ur Leukocyte Esterase Ur Microscopic Review Urine Culture Comments - Rads (name of study) chest xray Radiology: Prelim report reviewed (normal), See rad report PD MEDICAL DECISION MAKING - ED course Complexity details: reviewed old records, reviewed results, considered differential (She has had these symptoms for several weeks with worsening some days more than others. He had had prior ER visits without a clear diagnosis other than dehydration. He states his been drinking fluids reasonably.Consider side effect of prostate medicine for the lightheadedness.), d/w patient ED course: Consider side effects of his medications as possibilities as his prostate medicine can cause the lightheadedness and the statin cholesterol medicine could cause leg weakness and muscle aches. I would suggest stopping the statin and decreasing his prostate medicine. These may not be the cause necessarily but there had not been an other good diagnosis as yet Departure - Departure Disposition: 01 Home, Self Care Clinical Impression: Generalized weakness, Postural lightheadedness Condition: Stable Record reviewed to determine appropriate education?: Yes Instructions: ED Near Syncope Unkn Follow-Up: Sheela Doss MD [Primary Care Provider] - Comments: I do not have a certain cause of your symptoms. Encourage you to stay well- hydrated as there did seem to be some element of dehydration with the several visits. However there likely is more to it and so I would suggest possible medication side effects and have you decrease your terra Zosyn down to 2 mg daily and to stop your atorvastatin cholesterol medicine as that can cause leg muscle weakness. See if improving over the following week or so. Follow up with your PMD/Neurologist regarding other medication changes (additions/decreases) to help with your symptoms. Discharge Date/Time: 11/08/19 01:23
[2019-11-07] MEDS ORDERED: LACTATED RINGERS 1,000 ML IV STA (21:54)
[2019-11-07 22:06] LABS: BILIRUBIN,URINE NEGATIVE (NEGATIVE); GLUCOSE, URINE (UA) NEGATIVE (NEGATIVE); KETONES,URINE (UA) NEGATIVE (NEGATIVE); LEUKOCYTE ESTERASE, URINE NEGATIVE (NEGATIVE); NITRITE,URINE NEGATIVE (NEGATIVE); OCCULT BLOOD,URINE NEGATIVE (NEGATIVE); PH,URINE 5.5 PH (5.0-7.5); PROTEIN,URINE NEGATIVE (NEGATIVE); UROBILINOGEN,URINE 0.2 (NORMAL) E.U./dL (NORMAL)
[2019-11-07 22:09] LABS: CLARITY,URINE CLEAR (CLEAR)
[2019-11-07 22:27] LABS: BASOPHILS % (AUTO) 0.8 %; EOSINOPHILS # (AUTO) 0.1 10^3/uL (0.0-0.7); EOSINOPHILS % (AUTO) 1.2 %; HGB - HEMOGLOBIN 12.3 g/dL (14.0-18.0); LYMPHOCYTES # (AUTO) 0.6 10^3/uL (1.5-3.5); LYMPHOCYTES % (AUTO) 11.2 %; MEAN CORPUSCULAR HEMOGLOBIN 31.9 pg (27.0-31.0); MEAN CORPUSCULAR HGB CONC 33.4 g/dL (32.0-36.0); MEAN CORPUSCULAR VOLUME 95.3 fL (80.0-94.0); MEAN PLATELET VOLUME 9.1 fL (7.4-11.4); MONOCYTES # (AUTO) 0.6 10^3/uL (0.0-1.0); MONOCYTES % (AUTO) 10.8 %; NEUTROPHILS # (AUTO) 3.9 10^3/uL (1.5-6.6); NEUTROPHILS % (AUTO) 75.6 %; PLT - PLATELET COUNT 180 10^3/uL (130-450); RED BLOOD COUNT 3.86 10^6/uL (4.70-6.10); RED CELL DISTRIBUTION WIDTH 12.4 % (12.0-15.0); WHITE BLOOD COUNT 5.1 x10^3/uL (4.8-10.8)
[2019-11-07 22:39] LABS: ALBUMIN 3.7 g/dL (3.2-5.5); ALBUMIN/GLOBULIN RATIO 1.2 (1.0-2.2); ALKALINE PHOSPHATASE 83 IU/L (42-121); ALT ALANINE AMINOTRANSFERASE < 10 IU/L (10-60); AST ASPARTATE AMINOTRANSFERASE 19 IU/L (10-42); BILIRUBIN,TOTAL 0.5 mg/dL (0.2-1.0); BUN - BLOOD UREA NITROGEN 27 mg/dL (6-20); CARBON DIOXIDE - CO2 28 mmol/L (21-32); CHLORIDE 99 mmol/L (101-111); CK- CREATINE KINASE 143 IU/L (22-269); CREATININE 1.2 mg/dL (0.6-1.2); GLUCOSE 173 mg/dL (70-100); LIPASE 42 U/L (22-51); MAGNESIUM 2.5 mg/dL (1.7-2.8); SODIUM 139 mmol/L (135-145); TOTAL PROTEIN 6.9 g/dL (6.7-8.2)
[2019-11-07] MEDS ORDERED: SODIUM CHLORIDE 0.9% 1,000 ML IV STA (23:32)
[2019-11-08 01:28] LABS: CORTISOL 11.6 ug/dL
[2019-11-08 01:32] LABS: THYROID STIMULATING HORMONE 1.36 uIU/mL (0.34-5.60)
[2019-11-08 02:47] VITALS: BP 158/72
--- NOTE | 2019-11-08 07:51 | XRAY Report ---
PROCEDURE: Chest 1 View X-Ray INDICATIONS: chest pain TECHNIQUE: One view of the chest was acquired. COMPARISON: 11/06/2018 FINDINGS: Surgical changes and devices: Median sternotomy wires. Lungs and pleura: No pleural effusions or pneumothorax. Lungs are clear. Mediastinum: Mediastinal contours appear normal. Heart size is normal. Bones and chest wall: No suspicious bony lesions. Overlying soft tissues appear unremarkable. IMPRESSION: No acute cardiopulmonary disease process. Reviewed by: Radha Mann MD, PhD on 11/08/2019 7:50 AM PDT Approved by: Radha Mann MD, PhD on 11/08/2019 7:50 AM PDT Station ID: [id number]
== END 2019-11-08 01:23 | disposition home or self-care (01) ==
LOC: EDUNIT# → ED 21:36
DX: R53.1 Weakness (principal); R42 Dizziness and giddiness; G20 Parkinson's disease; N40.0 Benign prostatic hyperplasia without lower urinary tract symptoms; I25.10 Atherosclerotic heart disease of native coronary artery without angina pectoris; I25.2 Old myocardial infarction; Z95.1 Presence of aortocoronary bypass graft; Z79.02 Long term (current) use of antithrombotics/antiplatelets; Z79.82 Long term (current) use of aspirin
CPT/HCPCS: 36415; 71045; 81003; 82533; 82550; 83605; 83690; 83735; 93005; 96360; 96361; 99284; J7120; 80053; 81001; 84443; 85025; 87086

== ENCOUNTER 2019-11-11 15:46 | Outpatient (CLI) | payer OTHER | END 2019-11-11 15:47 | disposition EMS.NT | LOC: EMS 15:46 | PROVIDERS: ATTEND Surgery | DX: R53.83 Other fatigue (principal) ==

== ENCOUNTER 2019-11-11 17:50 | Outpatient (CLI) | payer OTHER | END 2019-11-11 17:51 | disposition home or self-care (01) | LOC: EMS 17:50 | PROVIDERS: ATTEND Surgery | DX: G47.00 Insomnia, unspecified (principal) ==